=== PATIENT | male | born 1930 | race Asian ===

== ENCOUNTER 2018-01-20 13:39 | Inpatient (IN) | payer OTHER, MEDICARE ==
[~2018-01-20] VITALS: Ht 160 cm; Wt 38.1 kg
[~2018-01-20 13:39] MED LIST: DUTA0.5C PO; TAMS-11 PO; [UNRECOGNIZED DRUG - CODE] PO
[2018-01-20 13:48] VITALS: BP_SYST 131
[2018-01-20] MEDS ORDERED: ONDANSETRON HCL 4 MG/2 ML VIAL IVP ONE (14:00)
[2018-01-20] MEDS ORDERED: NS 500 ML IV ONE (14:00)
[2018-01-20 14:27] LABS: BASOPHILS % (AUTO) 0.7 % (0.0-2.0); EOSINOPHILS % (AUTO) 0.2 % (0.0-4.0); HEMATOCRIT 36.8 % (36-54); HEMOGLOBIN 12.3 g/dL (14.0-18.0); LYMPHOCYTES # (AUTO) 0.6 K/uL (1.0-5.5); LYMPHOCYTES % (AUTO) 8.4 % (20.5-51.5); MEAN CORPUSCULAR HEMOGLOBIN 33 pg (27-31); MEAN CORPUSCULAR HGB CONC 33 % (32-36); MEAN CORPUSCULAR VOLUME 99 fL (79.0-98.0); MONOCYTES # (AUTO) 0.5 K/uL (0.0-1.0); MONOCYTES % (AUTO) 7.1 % (1.7-9.3); NEUTROPHILS # (AUTO) 5.7 K/uL (1.8-7.7); NEUTROPHILS % (AUTO) 83.6 % (40.0-70.0); PLATELET COUNT (AUTO) 184 K/uL (130-430); RED BLOOD CELL COUNT(AUTO) 3.73 MIL/uL (4.2-6.2); RED CELL DISTRIBUTION WIDTH 13.4 % (9.0-15.0); WHITE BLOOD COUNT (AUTO) 6.8 K/uL (4.8-10.8)
[2018-01-20 14:42] LABS: ANION GAP 8 (5-15); CALCIUM 8.6 mg/dL (8.4-11.0); CREATININE 0.63 mg/dL (0.55-1.30); GLUCOSE 192 mg/dL (70-99); POTASSIUM 4.6 mmol/L (3.5-5.1); UREA NITROGEN, BLOOD 13 mg/dL (8-21)
[2018-01-20 14:46] LABS: ALANINE AMINOTRANSFERASE 31 U/L (12-78); ALBUMIN 4.2 g/dL (3.4-4.8); ASPARTATE AMINOTRANSFERASE 21 U/L (10-37); PROTHROMBIN TIME 10.3 SECS (9.5-12.5); TOTAL BILIRUBIN 1.1 mg/dL (0.0-1.0)
[2018-01-20 14:49] LABS: CHLORIDE 84 mmol/L (98-107); SODIUM SERUM 117 mmol/L (136-145)
[2018-01-20] MEDS ORDERED: NACL 0.9% 1,000 ML IV ONE ×2 (15:00→16:45)
[2018-01-20 16:22] LABS: BILIRUBIN,URINE NEGATIVE (NEGATIVE); BLOOD, URINE NEGATIVE (NEGATIVE); CLARITY/URINE CLEAR (CLEAR); COLOR,URINE YELLOW (YELLOW); GLUCOSE,URINE 3+ (NEGATIVE); KETONES,URINE 1+ (NEGATIVE); LEUKOCYTE ESTERASE ,URINE NEGATIVE (NEGATIVE); NITRITE, URINE NEGATIVE (NEGATIVE); PH,URINE 6.5 (5.0-8.0); PROTEIN URINE NEGATIVE (NEGATIVE); UROBILINOGEN,URINE 0.2 (0.2-1.0)
[2018-01-20 16:28] LABS: BACTERIA,URINE FEW /HPF (None Seen); RBC,URINE 0-3 /HPF (0-3); WBC,URINE 0-3 /HPF (0-3)
[2018-01-20 17:08] VITALS: BP_SYST 127
[2018-01-20] MEDS ORDERED: POTASSIUM CHLORIDE 20 MEQ TAB.PRT.SR PO PRN (17:15)
[2018-01-20] MEDS ORDERED: ACETAMINOPHEN 325 MG TABLET PO PRN (17:15)
[2018-01-20] MEDS ORDERED: MORPHINE 2 MG/ML INJ. SYRINGE IVP PRN ×2 (17:15)
[2018-01-20] MEDS ORDERED: LORazepam 2 MG/ML VIAL IVP PRN (17:15)
[2018-01-20] MEDS ORDERED: MUPIROCIN 2% TOPICAL OINTMENT 22 GM NS PRN (17:15)
[2018-01-20] MEDS ORDERED: MAGNESIUM SULFATE 50 ML IV PRN (17:15)
[2018-01-20] MEDS ORDERED: ZOLPIDEM TARTRATE 5 MG TABLET PO PRN (17:15)
[2018-01-20] MEDS ORDERED: DOCUSATE SODIUM 100 MG CAPSULE PO PRN (17:15)
[2018-01-20 19:50] VITALS: BP_SYST 125
[2018-01-20] MEDS: HEPARIN SODIUM,PORCINE 5000 UNITS/ML VIAL SUBCUT SCH (21:07)
[2018-01-20] MEDS: ONDANSETRON HCL 4 MG/2 ML VIAL IVP PRN (21:47)
[2018-01-21] VITALS: BP_SYST 117
[2018-01-21] MEDS ORDERED: TEMA15CA5 PO (06:14)
[2018-01-21 08:20] VITALS: BP_SYST 111
[2018-01-21 08:27] LABS: ANION GAP 7 (5-15); CALCIUM 8.2 mg/dL (8.4-11.0); CHLORIDE 97 mmol/L (98-107); CREATININE 0.73 mg/dL (0.55-1.30); GLUCOSE 100 mg/dL (70-99); POTASSIUM 3.3 mmol/L (3.5-5.1); SODIUM SERUM 130 mmol/L (136-145); UREA NITROGEN, BLOOD 7 mg/dL (8-21)
[2018-01-21 08:52] LABS: HEMATOCRIT 36.1 % (36-54); HEMOGLOBIN 12.3 g/dL (14.0-18.0); MEAN CORPUSCULAR HEMOGLOBIN 33 pg (27-31); MEAN CORPUSCULAR HGB CONC 34 % (32-36); MEAN CORPUSCULAR VOLUME 98 fL (79.0-98.0); PLATELET COUNT (AUTO) 83 K/uL (130-430); RED BLOOD CELL COUNT(AUTO) 3.68 MIL/uL (4.2-6.2); RED CELL DISTRIBUTION WIDTH 13.4 % (9.0-15.0); WHITE BLOOD COUNT (AUTO) 7.8 K/uL (4.8-10.8)
[2018-01-21 08:54] VITALS: BP_SYST 145
[2018-01-21] MEDS: HEPARIN SODIUM,PORCINE 5000 UNITS/ML VIAL SUBCUT SCH ×2 (09:00→20:49)
[2018-01-21] MEDS: DUTASTERIDE 0.5 MG CAPSULE (AVODART) PO SCH (09:12)
[2018-01-21 10:38] LABS: BAND % (MANUAL) 5 % (0-6); BASOPHILS % (MANUAL) 0 % (0-2); EOSINOPHILS % (MANUAL) 0 % (0-7); LYMPHOCYTES % (MANUAL) 9 % (20-46); MONOCYTES % (MANUAL) 9 % (0-11)
[2018-01-21] MEDS ORDERED: DEXTROSE 50% JECT 50 ML DISP.SYRIN IVP PRN (11:15)
[2018-01-21] MEDS ORDERED: INSULIN ASPART 100 UNITS/ML, 10 ML VIAL (NovoLOG) SUBCUT PRN (11:15)
[2018-01-21 12:00] VITALS: BP_SYST 116
[2018-01-21] MEDS: cefTRIAXone 1 GM in D5W 50 ML IV SCH (12:59)
[2018-01-21 16:16] VITALS: BP_SYST 110
[2018-01-21 20:00] VITALS: BP_SYST 111
[2018-01-21] MEDS: TEMAZEPAM 15 MG CAPSULE PO SCH (20:39)
[2018-01-22] VITALS: BP_SYST 107
[2018-01-22 07:16] LABS: BASOPHILS # (AUTO) 0.1 K/uL (0.0-0.2); BASOPHILS % (AUTO) 1.1 % (0.0-2.0); EOSINOPHILS # (AUTO) 0.1 K/uL (0.0-0.4); EOSINOPHILS % (AUTO) 1.2 % (0.0-4.0); HEMATOCRIT 34.7 % (36-54); HEMOGLOBIN 12.2 g/dL (14.0-18.0); LYMPHOCYTES # (AUTO) 1.5 K/uL (1.0-5.5); LYMPHOCYTES % (AUTO) 22.4 % (20.5-51.5); MEAN CORPUSCULAR HEMOGLOBIN 35 pg (27-31); MEAN CORPUSCULAR HGB CONC 35 % (32-36); MEAN CORPUSCULAR VOLUME 98 fL (79.0-98.0); MONOCYTES # (AUTO) 0.8 K/uL (0.0-1.0); MONOCYTES % (AUTO) 11.1 % (1.7-9.3); NEUTROPHILS # (AUTO) 4.3 K/uL (1.8-7.7); NEUTROPHILS % (AUTO) 64.2 % (40.0-70.0); PLATELET COUNT (AUTO) 180 K/uL (130-430); RED BLOOD CELL COUNT(AUTO) 3.53 MIL/uL (4.2-6.2); RED CELL DISTRIBUTION WIDTH 13.9 % (9.0-15.0); WHITE BLOOD COUNT (AUTO) 6.8 K/uL (4.8-10.8)
[2018-01-22 07:27] LABS: ANION GAP 5 (5-15); CALCIUM 8.2 mg/dL (8.4-11.0); CHLORIDE 99 mmol/L (98-107); CREATININE 0.66 mg/dL (0.55-1.30); GLUCOSE 97 mg/dL (70-99); POTASSIUM 4.1 mmol/L (3.5-5.1); SODIUM SERUM 131 mmol/L (136-145); UREA NITROGEN, BLOOD 9 mg/dL (8-21)
[2018-01-22 09:08] VITALS: BP_SYST 113
[2018-01-22] MEDS: DUTASTERIDE 0.5 MG CAPSULE (AVODART) PO SCH (09:19)
[2018-01-22] MEDS: HEPARIN SODIUM,PORCINE 5000 UNITS/ML VIAL SUBCUT SCH ×2 (09:23→20:05)
[2018-01-22 12:00] VITALS: BP_SYST 133
[2018-01-22] MEDS: cefTRIAXone 1 GM in D5W 50 ML IV SCH (12:03)
[2018-01-22] MEDS: NACL 0.9% 1,000 ML IV SCH (12:04)
[2018-01-22] MEDS: ONDANSETRON HCL 4 MG/2 ML VIAL IVP PRN (12:07)
[2018-01-22 16:00] VITALS: BP_SYST 138
[2018-01-22 20:00] VITALS: BP_SYST 122
[2018-01-22] MEDS: TEMAZEPAM 15 MG CAPSULE PO SCH (20:07)
[2018-01-23 00:38] VITALS: BP_SYST 131
[2018-01-23 07:29] VITALS: BP_SYST 115
[2018-01-23 08:00] LABS: BASOPHILS # (AUTO) 0.1 K/uL (0.0-0.2); BASOPHILS % (AUTO) 1.1 % (0.0-2.0); EOSINOPHILS # (AUTO) 0.1 K/uL (0.0-0.4); EOSINOPHILS % (AUTO) 1.2 % (0.0-4.0); HEMATOCRIT 35.6 % (36-54); HEMOGLOBIN 11.9 g/dL (14.0-18.0); LYMPHOCYTES # (AUTO) 1.2 K/uL (1.0-5.5); LYMPHOCYTES % (AUTO) 20.2 % (20.5-51.5); MEAN CORPUSCULAR HEMOGLOBIN 33 pg (27-31); MEAN CORPUSCULAR HGB CONC 33 % (32-36); MEAN CORPUSCULAR VOLUME 98 fL (79.0-98.0); MONOCYTES # (AUTO) 0.6 K/uL (0.0-1.0); MONOCYTES % (AUTO) 10.9 % (1.7-9.3); NEUTROPHILS # (AUTO) 3.9 K/uL (1.8-7.7); NEUTROPHILS % (AUTO) 66.6 % (40.0-70.0); PLATELET COUNT (AUTO) 132 K/uL (130-430); RED BLOOD CELL COUNT(AUTO) 3.63 MIL/uL (4.2-6.2); RED CELL DISTRIBUTION WIDTH 13.8 % (9.0-15.0); WHITE BLOOD COUNT (AUTO) 5.9 K/uL (4.8-10.8)
[2018-01-23 08:04] LABS: ANION GAP 5 (5-15); CALCIUM 8.4 mg/dL (8.4-11.0); CHLORIDE 99 mmol/L (98-107); GLUCOSE 99 mg/dL (70-99); POTASSIUM 4.1 mmol/L (3.5-5.1); SODIUM SERUM 133 mmol/L (136-145); UREA NITROGEN, BLOOD 7 mg/dL (8-21)
[2018-01-23] MEDS: DUTASTERIDE 0.5 MG CAPSULE (AVODART) PO SCH (08:57)
[2018-01-23] MEDS: HEPARIN SODIUM,PORCINE 5000 UNITS/ML VIAL SUBCUT SCH (08:58)
[2018-01-23] MEDS: NACL 0.9% 1,000 ML IV SCH (10:29)
[2018-01-23 11:02] VITALS: BP_SYST 124
[2018-01-23 12:00] VITALS: BP_SYST 118
[2018-01-23] MEDS: cefTRIAXone 1 GM in D5W 50 ML IV SCH (12:19)
[2018-01-23 16:21] VITALS: BP_SYST 124
== END 2018-01-23 14:45 | DRG 689 ==
LOC: SED 13:39 → STU 16:36 → SMU 01-22 11:19
PROVIDERS: ADMIT General Practice; ATTEND General Practice
DX: N39.0 Urinary tract infection, site not specified (principal); E43 Unspecified severe protein-calorie malnutrition; E87.1 Hypo-osmolality and hyponatremia; N40.0 Benign prostatic hyperplasia without lower urinary tract symptoms; G30.9 Alzheimer's disease, unspecified; E87.6 Hypokalemia; E86.1 Hypovolemia; F02.80 Dementia in other diseases classified elsewhere, unspecified severity, without behavioral disturbance, psychotic disturbance, mood disturbance, and anxiety; Z79.899 Other long term (current) drug therapy; Z87.891 Personal history of nicotine dependence
CPT/HCPCS: 36415; 70450-TC; 71045; 80048; 80053; 81000-TC; 82962; 83036; 83605; 83735-TC; 83935-TC; 84302-TC; 84443-TC; 85007; 85025; 85027; 85610-TC; 85730-TC; 87040-TC; 87086; 93005; 96361; 96374; 97110-GP; 97116-GP; 97530-GP; 99285; J0696; J1644; J2405; J7030; J7040; J7060